=== PATIENT | female | born 1960 | race Caucasian/White ===

== ENCOUNTER 2018-08-25 13:40 | Emergency (ER) | payer OTHER ==
--- NOTE | 2018-08-25 13:53 | EDM.PDOC ---
"ED HPI GENERAL MEDICAL PROBLEM - General Chief Complaint: Lower Extremity Injury/Pain Stated Complaint: RIGHT ANKLE PAIN [id number] Time Seen by Provider: 08/25/18 13:52 Source of Information: Reports: Patient, RN, RN Notes Reviewed History Limitations: Reports: No Limitations - History of Present Illness INITIAL COMMENTS - FREE TEXT/NARRATIVE: Pt presents with c/o Rt ankle pain sustained about 5 days ago when she slipped and fell on some steps. She denies any other injury. She has Hx of remote Rt ankle fracture with ORIF. Duration: Week(s): (1) Location: Reports: Lower Extremity, Right Quality: Reports: Ache Severity: Severe Improves with: Reports: Immobilization, Rest Worsens with: Reports: Other (Wt bearing/walking), Movement Associated Symptoms: Reports: No Other Symptoms - Related Data Allergies Allergy/AdvReac Type Severity Reaction Status Date / Time No Known Allergies Allergy Verified 08/25/18 13:47 Home Meds: Home Meds Lisinopril 10 mg PO DAILY 08/25/18 [History] traZODone HCl [Trazodone HCl] 50 mg PO BEDTIME 08/25/18 [History] Past Medical History Cardiovascular History: Reports: Hypertension, Pacemaker Other Cardiovascular History: pacemaker placed november 2017 Musculoskeletal History: Reports: Fracture (Rt ankle) - Past Surgical History Musculoskeletal Surgical History: Reports: ORIF (Rt ankle) Social & Family History - Family History Family Medical History: Noncontributory - Tobacco Use Smoking Status *Q: Never Smoker - Caffeine Use Caffeine Use: Reports: Coffee - Recreational Drug Use Recreational Drug Use: No - Living Situation & Occupation Occupation: Employed Review of Systems - Review of Systems Review Of Systems: ROS reveals no pertinent complaints other than HPI. ED EXAM, GENERAL - Physical Exam Exam: See Below Exam Limited By: No Limitations General Appearance: Alert, WD/WN, No Apparent Distress Head: Atraumatic, Normocephalic Respiratory/Chest: No Respiratory Distress, Lungs Clear, Normal Breath Sounds, No Accessory Muscle Use, Chest Non-Tender Cardiovascular: Regular Rate, Rhythm, No Edema Extremities: No Pedal Edema, Normal Capillary Refill, Joint Swelling (mild Rt ankle soft tissue swelling), Limited Range of Motion (Rt ankle). No: Elias's Sign, Redness Neurological: Alert, Oriented, CN II-XII Intact, Normal Cognition, No Motor/ Sensory Deficits Psychiatric: Normal Affect, Normal Mood Skin Exam: Warm, Dry, Intact, Normal Color, No Rash Course - Vital Signs Last Recorded V/S: Last Vital Signs Temp 36.6 C 08/25/18 13:53 Pulse 65 08/25/18 13:53 Resp 16 08/25/18 13:53 BP 151/81 H 08/25/18 13:53 Pulse Ox 100 08/25/18 13:53 - Orders/Labs/Meds Orders: Active Orders 24 hr Category Date Time Status Ankle Min 3V Rt [CR] Urgent Exams 08/25/18 13:55 Taken - Radiology Interpretation Free Text/Narrative:: [facility] [place] [facility] Final Radiology Report Call: [phone] assistance Online chat: [email or web address] Name: REMI RUBIO Age: 57Years F Date: 08/25/2018 SSN: -- : 1960 Study: XR ANKLE COMPLETE MIN 3 VIEWS Requesting Physician: BROOKE HANNAH Images: 3 Addl Studies: Provided Clinical History: Contrast: Contrast Medium: Contrast Amount: Contrast Method: Page 1 of 2 EXAM: XR Right Ankle Complete, 3 or more Views EXAM DATE/TIME: 08/25/2018 2:00 PM CLINICAL HISTORY: 57 years old, female; Pain; Ankle; Right; Patient HX: Remote HX of RT ankle orif , reinjured TECHNIQUE: XR Right ankle 3 or more views. COMPARISON: No relevant prior studies available. FINDINGS: Bones/joints: There is a chronic fracture through the distal fibular shaft. The fracture line remains patent and there is sclerosis and productive change about it, which could relate to nonunion. One screw and 2 screw shafts are present in the fibula just proximal to this. No acute fracture is identified. The joint spaces are normally aligned. A small ossific density distal to the lateral malleolus could be degenerative or related to remote injury. There is mild osteophyte formation about the tibiotalar joint. An os trigonum is present with productive changes. Very small plantar and posterior calcaneal osteophytes are present. Soft tissues: There is mild generalized soft tissue swelling. Heterotopic ossification in the region of the interosseous membrane probably relates to remote injury. IMPRESSION: 1. Mild generalized soft tissue swelling with chronic posttraumatic changes but no acute fracture or dislocation identified. May consider follow-up in 7 to 10 days or correlation with MRI if symptoms persist. 2. Degenerative changes as described. REMI RUBIO | Final Radiology Report CONFIDENTIALITY STATEMENT This report is intended only for use by the referring physician, and only in accordance with law. If you received this in error, call [phone]. Page 2 of 2 Thank you for allowing us to participate in the care of your patient. Dictated and Authenticated by: Samir Beltran MD 08/25/2018 2:42 PM Central Time ([place] & [place]) Departure - Departure Time of Disposition: 14:43 Disposition: Home, Self-Care 01 Condition: Good Clinical Impression: Post-traumatic arthritis of right ankle Right ankle sprain Qualifiers: Encounter type: initial encounter Involved ligament of ankle: other ligament Qualified Code(s): S93.491A - Sprain of other ligament of right ankle, initial encounter - Discharge Information *PRESCRIPTION DRUG MONITORING PROGRAM REVIEWED*: No *COPY OF PRESCRIPTION DRUG MONITORING REPORT IN PATIENT BAKARI: No Instructions: Ankle Sprain, Osteoarthritis Forms: ED Department Discharge Additional Instructions: Rx: Tramadol 50mg One tablet by mouth at bedtime as needed for ankle pain. Rx: Naprosyn 500mg One tablet by mouth twice a day as needed for ankle pain. Use right ankle splint boot and crutches as needed for comfort for 7 to 10 days. Follow up in clinic for recheck if not improving as expected in 7 to 10 days. Call [phone] for appointment if you do not have a primary doctor already. - My Orders Last 24 Hours: My Active Orders 08/25/18 13:55 Ankle Min 3V Rt [CR] Urgent - Assessment/Plan Last 24 Hours: My Active Orders 08/25/18 13:55 Ankle Min 3V Rt [CR] Urgent"
== END 2018-08-25 15:02 | disposition home or self-care (01) ==
LOC: DL.ED 13:40
DX: S93.491A Sprain of other ligament of right ankle, initial encounter (principal); M19.171 Post-traumatic osteoarthritis, right ankle and foot; I10 Essential (primary) hypertension; W01.0XXA Fall on same level from slipping, tripping and stumbling without subsequent striking against object, initial encounter
CPT/HCPCS: 73610-RT; 99283